=== PATIENT | female | born 1945 | race Caucasian/White ===

== ENCOUNTER 2018-02-08 06:37 | Observation (INO) | payer MEDICARE, OTHER ==
[~2018-02-08] VITALS: Ht 162.6 cm; Wt 58.1 kg
--- OUTSIDE RECORDS SUMMARY | 2018-02-08 06:39 | XMS REPORT | Clinical Summary ---
Author Author [facility] Address Unknown Phone Unavailable Care Team Providers Care Traveling Accountant Name Role Phone Mira Brennan MD PCP Allergies Active Allergy Reactions Severity Noted Date Comments Codeine Itching 12/12/2013 Current Medications Prescription Sig. Disp. Refills Start End Date Status Date cholecalciferol, vitamin Take 1,000 Units by Active D3, (VITAMIN D3) 1,000 mouth. unit tablet sertraline (ZOLOFT) 100 50 mg a day 1 03/22/20 Active MG tablet 17 alendronate (FOSAMAX) 70 Take 1 tablet (70 mg 12 tablet 3 04/12/20 04/12/20 Active MG tablet total) by mouth every 7 17 18 days. Take in the morning with a full glass of water, as directed. PROAIR HFA 90 INHALE 2 PUFFS PO Q 4 H 0 12/15/19 04/12/20 Discontin mcg/actuation inhaler UTD 17 17 ued azithromycin (ZITHROMAX) 0 12/15/19 04/12/20 Discontin 250 MG tablet 17 17 ued BREO ELLIPTA 200-25 INHALE 1 PUFF PO D UTD 5 12/29/19 04/12/20 Discontin mcg/dose blister with 17 17 ued device powder for inhalation alendronate (FOSAMAX) 70 Take 1 tablet (70 mg 12 tablet 3 01/12/20 04/12/20 Discontin MG tablet total) by mouth every 7 17 17 ued days. Take in the morning with a full glass of water, as directed. Active Problems Not on file Encounters Date Type Specialty Care Team Description 04/12/2017 Office Visit Endocrinology Alberto Faust MD Osteoporosis (Primary Dx) 04/12/2017 Orders Only Endocrinology Louann Cano MA Osteoporosis (Primary Dx) after 02/07/2017 Social History Tobacco Use Types Packs/Day Years Used Date Never Smoker Smokeless Tobacco: Never Used Alcohol Use Drinks/Week oz/Week Comments No Sex Assigned at Date Recorded Not on file Last Filed Vital Signs Vital Sign Reading Time Taken Blood Pressure 121/63 04/12/2017 11:47 AM CDT Pulse 76 04/12/2017 11:47 AM CDT Temperature - - Respiratory Rate - - Oxygen Saturation - - Inhaled Oxygen - - Concentration Weight 60.6 kg (133 lb 9.6 oz) 04/12/2017 11:47 AM CDT Height 161.3 cm (5' 3.5") 04/12/2017 11:47 AM CDT Body Mass Index 23.29 04/12/2017 11:47 AM CDT Plan of Treatment Date Type Specialty Care Team Description 04/17/2018 Ancillary Alberto Faust MD Procedure [address] [place] [address] [phone] 04/17/2018 Office Visit Endocrinology Alberto Faust MD [address] [address] [phone] Health Maintenance Due Date Last Done Comments COLONOSCOPY 1997 MAMMOGRAM 1997 ZOSTER VACCINE 2007 PNEUMOCOCCAL 2012 POLYSACCHARIDE VACCINE AGE 65 AND OVER PNEUMOCOCCAL-13 2012 INFLUENZA VACCINE 05/24/2018 Results * Bone Density (04/12/2017 11:42 AM) Specimen Performing Laboratory [facility] [address] [place] [address] Narrative [facility] [address] [place] [address]. [address] [place] [id number] Bone Density Report Name: GLORIA SAHU Sex: Female Age: 72 Ethnicity: White Height: 63.5 in Referring Provider: ALBERTO FAUST Date of : 1945 Weight: 133.6lb Indication: Postmenopausal; screening for osteoporosis Accession number: [id number] Bone Density: Exam date 04/12/2017 Region BMD (g/cm2) T-score Z-score Classification AP Spine(L1-L4) 1.0590.12.2 Normal Femoral Neck(Left) 0.579 -2.4 -0.6 Osteopenia Total Hip(Left) 0.735 -1.7 -0.2 Osteopenia Femoral Neck(Right) 0.665 -1.70.1 Osteopenia Total Hip(Right) 0.700 -2.0 -0.5 Osteopenia Total Hip Mean 0.718 -1.9 -0.4 Osteopenia World Health Organization criteria for BMD impression classify patients as Normal (T-score at or above 1.0), Osteopenia (T-score between 1.0 and 2.5), or Osteoporosis (T-score at or below 2.5). 10-year Fracture Risk: Major Osteoporotic Fracture 13% Hip Fracture 3.1% Reported Risk Factors: [place] (), T-score(WHO)=-2.3, BMI=23.3 FRAX Version 3.08. Fracture probability calculated for an untreated patient. Fracture probability may be lower if the patient has received treatment. Impression: The patient has low bone mass, based on the Left Femoral Neck T-score. The patient has an estimated ten-year risk of hip fracture of 3.1% and an estimated ten-year risk of major fracture of 13%, based on the WHO FRAX algorithm for a patient not on therapy (NOF thresholds are 20% for a major fracture and 3% for a hip fracture). Discussion: BONE DENSITY IS LOW AT ONE OR MORE SKELETAL SITES. THE PATIENT'S BMD AND CLINICAL RISK FACTORS CONTRIBUTE TO THIS PATIENT'S INCREASED RISK OF FRACTURE. This patient's lowest T-score is low at one or more skeletal sites.It meets the World Health Organization's (WHO) criteria for low bone mass (T-score between -1.0 and -2.5). The patient's 10-year risk of hip fracture as calculated by FRAX exceeds the threshold where pharmacological therapy is recommended by the National Osteoporosis Foundation (NOF).However, all treatment decisions require clinical judgment and consideration of individual patient factors, including patient preferences, comorbidities, previous drug use, risk factors not captured in the FRAX model (e.g., frailty, falls, vitamin D deficiency, increased bone turnover, interval significant decline in bone density) and possible under or overestimation of fracture risk by FRAX. The patient should follow a healthful lifestyle (good nutrition with adequate calcium and vitamin D, and appropriate weight-bearing exercise). Follow-Up: Consider a repeat BMD and Vertebral Fracture Assessment (VFA) exam in 1-2 years or sooner if medically necessary, to reassess this patient's status. Reported by: Alberto Faust MD, NEGRA, MACE, FACP, CCD on 04/12/2017 4:41:00 PM. after 02/07/2017 Insurance Payer Benefit Subscriber ID Type Phone Address Plan / Group MEDICARE MEDICARE xxxxxxxxxx Medicare [place], [place] PART A AND B AETNA AETNA PPO xxxxxxxxxx PPO OPEN CHOICE
--- OUTSIDE RECORDS SUMMARY | 2018-02-08 06:39 | XMS REPORT | Clinical Summary ---
Author Author [facility] Address Unknown Phone Unavailable Care Team Providers Care Dice Spotter Name Role Phone PCP Unavailable Allergies Active Allergy Reactions Severity Noted Date Comments Codeine Itching 12/12/2013 Current Medications Prescription Sig. Disp. Refills Start End Date Status Date esomeprazole (NEXIUM) 40 Take 40 mg by mouth Active MG capsule daily. rosuvastatin (CRESTOR) 20 Take 20 mg by mouth Active MG tablet daily. clidinium-chlordiazepoxid Take 1 capsule by mouth 4 Active e (LIBRAX) 5-2.5 mg per (four) times daily before capsule meals and nightly. OMEPRAZOLE/SODIUM Take by mouth. Active BICARBONATE (ZEGERID ORAL) cholecalciferol, vitamin Take 1,000 Units by mouth Active D3, 1,000 units tablet daily. Active Problems No known active problems Social History Tobacco Use Types Packs/Day Years Used Date Never Smoker Alcohol Use Drinks/Week oz/Week Comments Yes 1 Glasses of 0.6 wine Sex Assigned at Date Recorded Not on file Last Filed Vital Signs Not on file Plan of Treatment Not on file Results Not on fileafter 02/07/2017
[2018-02-08] MEDS ORDERED: ONDANSETRON HCL INJ 2 MG/ML VIAL IV STA ×2 (06:55→08:44)
[2018-02-08] MEDS ORDERED: KETOROLAC TROMETHAMINE 30 MG/ML VIAL IV STA ×2 (06:55→14:19)
[2018-02-08] MEDS ORDERED: ONDANSETRON HCL INJ 2 MG/ML VIAL ONE (06:57)
[2018-02-08] MEDS ORDERED: KETOROLAC TROMETHAMINE 30 MG/ML VIAL ONE (06:57)
[2018-02-08 07:43] LABS: BASOPHILS % 0.4 % (0.0-1.0); EOSINOPHILS # (AUTO) 0.1 (0.0-0.4); EOSINOPHILS % 1.2 % (0.0-6.0); HEMATOCRIT 42.2 % (34.2-44.1); LYMPHOCYTES # (AUTO) 1.7 (1.0-3.2); LYMPHOCYTES % 34.6 % (18.0-39.1); MEAN CORPUSCULAR HEMOGLOBIN 31.6 pg (28-32); MEAN CORPUSCULAR HGB CONC 33.2 g/dL (31-35); MEAN CORPUSCULAR VOLUME 95.3 fL (81-99); MONOCYTES # (AUTO) 0.4 (0.2-0.8); MONOCYTES % 8.8 % (4.4-11.3); NEUTROPHILS # (AUTO) 2.7 (2.1-6.9); NEUTROPHILS % 54.4 % (38.7-80.0); PLATELET COUNT 221 x10e3/uL (140-360); RED BLOOD COUNT 4.43 x10e6/uL (3.6-5.1); RED CELL DISTRIBUTION WIDTH 12.6 % (11.7-14.4)
[2018-02-08 07:58] LABS: ALANINE AMINOTRANSFERASE 16 IU/L (0-55); ALBUMIN/GLOBULIN RATIO 1.3 (0.8-2.0); ALKALINE PHOSPHATASE 59 IU/L (40-150); AMYLASE 51 U/L (25-125); ANION GAP 15.3 mmol/L (8-16); BLOOD UREA NITROGEN 23 mg/dL (7-26); BUN/CREATININE RATIO 33 (6-25); CALCIUM 9.8 mg/dL (8.4-10.2); CARBON DIOXIDE 25 mmol/L (22-29); CHLORIDE 103 mmol/L (98-107); EST GLOMERULAR FILTRATION RATE > 60 ML/MIN (60-); GLUCOSE 128 mg/dL (74-118); LIPASE 33 U/L (8-78); POTASSIUM 4.3 mmol/L (3.5-5.1); SODIUM 139 mmol/L (136-145)
[2018-02-08] MEDS ORDERED: MORPHINE SULFATE 2 MG/ML SYR IV STA (08:12)
--- NOTE | 2018-02-08 08:12 | Diagnostic Imaging Report ---
PROCEDURE: CT ABDOMEN AND PELVIS WITHOUT CONTRAST TECHNIQUE: The abdomen and pelvis were scanned utilizing a multidetector helical scanner from the diaphragm to the lesser trochanter. No intravenous or oral contrast was administered per physician request. Coronal and sagittal multiplanar reformations were obtained. COMPARISON: None. INDICATIONS: RIGHT FLANK PAIN FINDINGS: ABSENCE OF INTRAVENOUS CONTRAST DECREASES SENSITIVITY FOR DETECTION OF FOCAL LESIONS AND VASCULAR PATHOLOGY. LOWER THORAX: Normal. HEPATOBILIARY: No focal hepatic lesions. No biliary ductal dilatation. SPLEEN: No splenomegaly. PANCREAS: No focal masses or ductal dilatation. ADRENALS: No adrenal nodules. KIDNEYS/URETERS: 2.0 mm calculus is present in the distal right ureter, located within the right ureterovesicular junction, series 3 image 149. No right hydroureter or hydronephrosis. Punctate calculi are present in the interpolar region and inferior pole of the left kidney. No left hydronephrosis. No perinephric soft tissue inflammatory changes. PELVIC ORGANS/BLADDER: Unremarkable. PERITONEUM / RETROPERITONEUM: No free air or fluid. LYMPH NODES: No lymphadenopathy. VESSELS: Atherosclerotic calcifications. GI TRACT: No distention or wall thickening. Normal appendix. Moderate amount of retained feces in its intraluminal evaluation of the colon. BONES AND SOFT TISSUES: Degenerative changes of the thoracic spine. IMPRESSION: Distal right ureteral calculus. No right hydronephrosis or hydroureter. Nonobstructing left nephrolithiasis. Dictated by: Willy Maynard M.D. on 02/08/2018 at 8:13 Electronically approved by: Willy Maynard M.D. on 02/08/2018 at 8:13
[2018-02-08 08:42] LABS: BILIRUBIN,URINE NEGATIVE (NEGATIVE); CLARITY,URINE SL CLOUDY (CLEAR); COLOR,URINE YELLOW (YELLOW); KETONES,URINE TRACE (NEGATIVE); LEUKOCYTE ESTERASE ,URINE TRACE (NEGATIVE); NITRITE,URINE NEGATIVE (NEGATIVE); PROTEIN,URINE DIPSTICK NEGATIVE (NEGATIVE); URINE UROBILINOGEN 0.2 mg/dL (0.2 - 1)
[2018-02-08 08:48] LABS: BACTERIA,URINE FEW /HPF; CALCIUM OXALATE CRYSTALS,UR MODERATE (FEW); EPITHELIAL CELLS,URINE MODERATE /LPF
[2018-02-08] MEDS ORDERED: HYDROMORPHONE 1MG/1ML INJ IV STA ×2 (09:03→10:57)
[2018-02-08] MEDS ORDERED: SODIUM CHLORIDE 0.9% 1000ML 1,000 ML IV SCH (11:00)
[2018-02-08] MEDS ORDERED: HYDROMORPHONE 1MG/1ML INJ IV SCH (11:15)
[2018-02-08] MEDS ORDERED: PROMETHAZINE 12.5MG/ NACL 0.9% 12.5 MG/50 ML BAG IV ONE (12:15)
[2018-02-08] MEDS ORDERED: ONDANSETRON HCL INJ 2 MG/ML VIAL IV PRN (15:30)
[2018-02-08] MEDS ORDERED: HYDROMORPHONE 1MG/1ML INJ IV PRN (15:30)
[2018-02-08] MEDS ORDERED: CEFTRIAXONE SOD 1 GM VIAL IV SCH (15:45)
[2018-02-08] MEDS: SODIUM CHLORIDE 0.9% 1000ML 1,000 ML IV SCH ×2 (16:00→23:26)
--- OUTSIDE RECORDS SUMMARY | 2018-02-08 16:18 | XMS REPORT ---
[facility] Address Unknown Phone Unavailable Care Team Providers Care Detention Attendant Name Role Phone ALEX WANG Unavailable Unavailable Problems This patient has no known problems. Allergies, Adverse Reactions, Alerts This patient has no known allergies or adverse reactions. Medications This patient has no known medications. Results Test Description Test Time Test Comments Text Results Atomic Results Result Comments CT ABDOMEN/PELVIS WO [place] [address] Patient Name: PETE SAHU MR #: [id number] : 1945 Age/Sex: 72/F Req #: [id number] Adm Physician: Ordered by: ROBIN MA MD Report #: [id number] Location: ER Room/Bed: ___ Procedure: [id number] CT/CT ABDOMEN/PELVIS WO Exam Date: 02/08/18 Exam Time: 0720 REPORT STATUS: Signed PROCEDURE: CT ABDOMEN AND PELVIS WITHOUT CONTRAST TECHNIQUE: The abdomen and pelvis were scanned utilizing a multidetector helical scanner from the diaphragm to the lesser trochanter. No intravenous or oral contrast was administered per physician request. Coronal and sagittal multiplanar reformations were obtained. COMPARISON: None. INDICATIONS: RIGHT FLANK PAIN FINDINGS: ABSENCE OF INTRAVENOUS CONTRAST DECREASES SENSITIVITY FOR DETECTION OF FOCAL LESIONS AND VASCULAR PATHOLOGY. LOWER THORAX: Normal. HEPATOBILIARY: No focal hepatic lesions. No biliary ductal dilatation. SPLEEN: No splenomegaly. PANCREAS: No focal masses or ductal dilatation. ADRENALS: No adrenal nodules. KIDNEYS/ URETERS: 2.0 mm calculus is present in the distal right ureter, located within the right ureterovesicular junction, series 3 image 149. No right hydroureter or hydronephrosis. Punctate calculi are present in the interpolar region and inferior pole of the left kidney. No left hydronephrosis. No perinephric soft tissue inflammatory changes. PELVIC ORGANS /BLADDER: Unremarkable. PERITONEUM / RETROPERITONEUM: No free air or fluid. LYMPH NODES: No lymphadenopathy. VESSELS: Atherosclerotic calcifications. GI TRACT: No distention or wall thickening. Normal appendix. Moderate amount of retained feces in its intraluminal evaluation of the colon. BONES AND SOFT TISSUES: Degenerative changes of the thoracic spine. IMPRESSION: Distal right ureteral calculus. No right hydronephrosis or hydroureter. Nonobstructing left nephrolithiasis. Dictated by: Shoshana Callejas M.D. on 02/08/2018 at 8:13 Electronically approved by: Shoshana Callejas M.D. on 02/08/2018 at 8:13 Dictated By: SHOSHANA CALLEJAS MD 2 Transcribed By: VONNIE on 02/08/18812 COPY TO: ROBIN MA MD
--- OUTSIDE RECORDS SUMMARY | 2018-02-08 16:18 | XMS REPORT | Clinical Summary ---
Author Author [facility] Address Unknown Phone Unavailable Care Team Providers Care Bulking Machine Operator Name Role Phone PCP Unavailable Allergies Active [...]
--- OUTSIDE RECORDS SUMMARY | 2018-02-08 16:18 | XMS REPORT | Clinical Summary ---
Author Author [facility] Address Unknown Phone Unavailable Care Team Providers Care Link Cutter Name Role Phone Mira Brennan MD PCP [...] Description 04/17/2018 Ancillary Alberto Faust MD Procedure [address] [place] [address] [phone] 04/17/2018 Office Visit Endocrinology Alberto Faust MD [address] [address] [phone] Health Maintenance Due Date Last Done Comments COLONOSCOPY 1997 MAMMOGRAM 1997 ZOSTER VACCINE 2007 PNEUMOCOCCAL 2012 POLYSACCHARIDE VACCINE AGE 65 AND OVER PNEUMOCOCCAL-13 2012 INFLUENZA VACCINE 05/24/2018 Results * Bone Density (04/12/2017 11:42 AM) Specimen Performing Laboratory [facility] [address] [place] [address] Narrative [facility] [address] [place] [address]. [address] [place] [address] Bone Density Report Name: GLORIA SAHU Sex: Female Age: 72 Ethnicity: White Height: 63.5 in Referring Provider: ALBERTO FAUST Date of : 1945 Weight: 133.6lb Indication: Postmenopausal; screening for osteoporosis Accession number: [id number] Bone Density: Exam date 04/12/2017 Region BMD [...]
[2018-02-08 17:22] VITALS: BP 119/59
[2018-02-08 17:44] VITALS: BP 119/59
[2018-02-08 20:00] VITALS: BP 109/55
[2018-02-09] VITALS: BP 110/57
[2018-02-09 04:00] VITALS: BP 122/57
[2018-02-09 07:08] LABS: BASOPHILS % 0.8 % (0.0-1.0); EOSINOPHILS # (AUTO) 0.1 (0.0-0.4); EOSINOPHILS % 1.3 % (0.0-6.0); HEMATOCRIT 34.8 % (34.2-44.1); HEMOGLOBIN 11.3 g/dL (12.0-16.0); LYMPHOCYTES # (AUTO) 1.2 (1.0-3.2); LYMPHOCYTES % 31.5 % (18.0-39.1); MEAN CORPUSCULAR HEMOGLOBIN 31.7 pg (28-32); MEAN CORPUSCULAR HGB CONC 32.5 g/dL (31-35); MEAN CORPUSCULAR VOLUME 97.8 fL (81-99); MONOCYTES # (AUTO) 0.3 (0.2-0.8); MONOCYTES % 9.1 % (4.4-11.3); NEUTROPHILS # (AUTO) 2.1 (2.1-6.9); PLATELET COUNT 168 x10e3/uL (140-360); RED BLOOD COUNT 3.56 x10e6/uL (3.6-5.1); RED CELL DISTRIBUTION WIDTH 12.7 % (11.7-14.4)
[2018-02-09 07:31] LABS: ANION GAP 7.7 mmol/L (8-16); BLOOD UREA NITROGEN 13 mg/dL (7-26); BUN/CREATININE RATIO 24 (6-25); CALCIUM 8.3 mg/dL (8.4-10.2); CARBON DIOXIDE 26 mmol/L (22-29); CHLORIDE 112 mmol/L (98-107); CREATININE, SERUM 0.55 mg/dL (0.57-1.11); EST GLOMERULAR FILTRATION RATE > 60 ML/MIN (60-); GLUCOSE 91 mg/dL (74-118); POTASSIUM 3.7 mmol/L (3.5-5.1); SODIUM 142 mmol/L (136-145)
[2018-02-09 09:30] VITALS: BP 129/60
[2018-02-09 10:04] VITALS: BP 129/60
--- NOTE | 2018-02-09 10:31 | Consultation ---
DATE OF CONSULTATION: February 09, 2018 UROLOGY CONSULTATION CHIEF UROLOGIC COMPLAINT/REASON FOR CONSULTATION: Kidney stone. HISTORY OF PRESENT ILLNESS: Gloria Keating is a 72-year-old female with acute onset of sharp severe right-sided flank pain. She was admitted to the hospital with a kidney stone and gross hematuria. PAST MEDICAL HISTORY: Partial colectomy and hypertension. MEDICATIONS: Please see MAR. ALLERGIES: NKDA. SOCIAL HISTORY: No smoking. No drinking. FAMILY HISTORY: No urologic stones or disease. REVIEW OF SYSTEMS: As per HPI. All other systems negative. PHYSICAL EXAMINATION GENERAL: Elderly female in no acute distress. VITALS: Currently, she is afebrile with stable vital signs. HEENT: Sclerae anicteric. NECK: Supple. BACK: Without costovertebral tenderness bilaterally. ABDOMEN: Soft. It is nontender. It is nondistended. No palpable masses. No palpable hernias. No palpable hepatosplenomegaly. : Normal female external genitalia. EXTREMITIES: Without edema. Moves extremities. PSYCH: Alert and appropriate. SKIN: Intact. Normal color. PERTINENT LABORATORY DATA: CT scan revealing a 10 mm right distal ureteral calculus, mild hydronephrosis and punctate left kidney stone. Hemoglobin 14, hematocrit 42 and platelet count 221,000, white cell count 5000. Sodium 139, potassium 4.3, chloride 109, bicarb 25, BUN 22, creatinine 0.7, glucose 128. Urinalysis with 6-10 reds and 6-10 whites. IMPRESSION 1. Right ureteral calculus. 2. Mild right hydronephrosis. 3. Right renal colic. 4. Left kidney stone, nonobstructing. 5. Gross hematuria. 6. Questionable urinary tract infection. PLAN: The patient passed the ureteral stone. She is currently asymptomatic. Will discharge her home with outpatient followup and stone workup. Thank you for allowing me to participate in the care of your patient. Will be happy to follow along with you. Job#: [id number] RI cc:KARAN CRISTINA MD
== END 2018-02-09 10:20 | disposition home or self-care (01) ==
LOC: ER 06:37 → MED/SURG 16:15
PROVIDERS: ADMIT Internal Medicine; ATTEND Internal Medicine
DX: N13.6 Pyonephrosis (principal); I10 Essential (primary) hypertension; N39.0 Urinary tract infection, site not specified; R31.0 Gross hematuria
CPT/HCPCS: 36415 ×2; 74176; 80048; 80053; 81001; 82150; 83690; 85025 ×2; 87086; 88300; 99284; G0378 ×2; J0696; J1170; J1885; J2270; J2405; J2550; J7030 ×2

== ENCOUNTER → 2018-03-07 | Outpatient (CLI) | payer MEDICARE ==
[~2018-03-07] MED LIST: IOPAMIDOL 300MG/ML 100 ML INFUS..BTL IV ONE
[2018-03-07 11:10] LABS: BLOOD UREA NITROGEN 18 mg/dL (7-26); BUN/CREATININE RATIO 31 (6-25); CREATININE, SERUM 0.58 mg/dL (0.57-1.11); EST GLOMERULAR FILTRATION RATE > 60 ML/MIN (60-)
--- NOTE | 2018-03-07 16:51 | Diagnostic Imaging Report ---
PROCEDURE:INTRAVENOUS PYELOGRAM (IVP) COMPARISON:Patients [facility], CT, CT ABDOMEN/PELVIS WO, 02/08/2018, 7:23. INDICATIONS:CALCULI OF KIDNEY TECHNIQUE: After obtaining a drain layer KUB, 100 cc of Isovue-300 were administered intravenously. Multiple frontal and bilateral oblique images of the abdomen and pelvis were obtained with and without compression. Post-void images were obtained. FINDING: Stuffing Machine Operator KUB: 2 and 3 mm nonobstructing calculi in the inferior pole of the left kidney. No other radiopaque densities project over the genitourinary system. Kidneys: Renal positions, contours and sizes are normal. Prompt bilateral excretion of contrast. Calices and renal pelves are normal without dilation or filling defects. Ureters: Normal caliber bilaterally without irregularity or filling defect. Bladder: Increased trabeculations of the bladder. Small post-void residual. CONCLUSION: 1. 2 and 3 mm nonobstructing calculi in the inferior pole of the left kidney. 2. No filling defects in the collecting systems, pelves, ureters, or bladder. 3. Increased bladder trabeculation. Small postvoid residual. Aníbal Maguire M.D. Dictated by: Aníbal Maguire M.D. on 03/07/2018 at 16:53 Electronically approved by: Aníbal Maguire M.D. on 03/07/2018 at 16:53
== END ==
LOC: DX 10:08
PROVIDERS: ATTEND Urology
DX: N20.0 Calculus of kidney (principal); N13.30 Unspecified hydronephrosis
CPT/HCPCS: 36415; 74400; 82565; 84520; Q9967

== ENCOUNTER → 2018-06-19 | Outpatient (CLI) | payer MEDICARE ==
--- NOTE | 2018-06-19 11:36 | Diagnostic Imaging Report ---
PROCEDURE:X-RAY ABDOMEN - KUB COMPARISON:IVP dated 03/07/18 INDICATIONS:CALCULUS OF KIDNEY FINDINGS: There is a non-obstructed bowel-gas pattern. 0.4 and 0.3 cm calculi overlying left renal inferior pole. Unchanged pelvic phleboliths. There are no acute osseous abnormalities. CONCLUSION: Subcentimeter nonobstructive left inferior pole renal calculi. Dictated by: Paul Ramon M.D. on 06/19/2018 at 11:42 Electronically approved by: Paul Ramon M.D. on 06/19/2018 at 11:42
== END ==
LOC: RAD 10:02
PROVIDERS: ATTEND Urology
DX: N20.0 Calculus of kidney (principal)
CPT/HCPCS: 74018

== ENCOUNTER → 2018-09-18 | Outpatient (CLI) | payer MEDICARE ==
--- NOTE | 2018-09-18 12:11 | Diagnostic Imaging Report ---
EXAM: ABDOMEN-1VIEW (KUB) DATE: 09/18/2018 11:34 AM INDICATION: History of kidney stones COMPARISON: None FINDINGS: Bowel Gas Pattern: Non-obstructive. Moderate stool. Stool largely secures kidneys. Pneumoperitoneum: None. Suspicious Calcifications: Calcifications in the pelvis statistically vascular. Apparent calcifications right upper quadrant appear superior to kidney and likely represent hepatic granulomata. Additional presumed splenic granulomata. Other: Degenerative changes hips. IMPRESSION: No acute findings. Signed by: Dr. Moises Matson MD on 09/18/2018 12:08 PM
== END ==
LOC: RAD 11:23
PROVIDERS: ATTEND Urology
DX: N20.0 Calculus of kidney (principal)
CPT/HCPCS: 74018

== ENCOUNTER → 2019-01-12 | Outpatient (CLI) | payer OTHER ==
--- NOTE | 2019-01-12 15:03 | Diagnostic Imaging Report ---
Exam: KUB. Clinical History: Calculus of kidney Comparison: 09/18/2018 FINDINGS: Bowel Gas Pattern: Non-obstructive. Moderate stool. Stool largely obscures kidneys. Pneumoperitoneum: None. Suspicious Calcifications: Calcifications in the pelvis statistically vascular. Apparent calcifications right upper quadrant appear superior to kidney and likely represent hepatic granulomata. Additional presumed splenic granulomata. Several punctate stones over the left kidney. Other: Degenerative changes hips. IMPRESSION: Several punctate stones over the left kidney. Signed by: Dr. Bernardo Tripp M.D. on 01/12/2019 2:59 PM
== END ==
LOC: RAD 13:42
PROVIDERS: ATTEND Urology
DX: N20.0 Calculus of kidney (principal)
CPT/HCPCS: 74018

== ENCOUNTER → 2019-07-11 | Outpatient (CLI) | payer MEDICARE ==
--- NOTE | 2019-07-11 13:19 | Diagnostic Imaging Report ---
EXAM: ABDOMEN-1VIEW (KUB) DATE: 07/11/2019 12:51 PM INDICATION: Renal stones COMPARISON: 01/12/2019 FINDINGS: Again identified are 2 punctate calcifications projecting over the left renal shadow which may reflect small stones. There are additional calcifications projecting over the liver and spleen which likely reflect granulomatous calcifications. Phleboliths are noted within the pelvis. Bowel gas pattern appears nonobstructive. No intraperitoneal free air is appreciated. There has been interval right hip arthroplasty since the prior examination. No acute osseous abnormalities identified. IMPRESSION: Subcentimeter calcifications noted projecting over the left renal shadow which may reflect small stones, similar to the prior examination. Signed by: Dr. Hola Quiros MD on 07/11/2019 1:15 PM
== END ==
LOC: RAD 12:42
PROVIDERS: ATTEND Urology
DX: N20.0 Calculus of kidney (principal)
CPT/HCPCS: 74018

== ENCOUNTER → 2021-08-18 | Outpatient (CLI) | payer MEDICARE ==
[2021-08-18 14:16] LABS: BASOPHILS % 0.7 % (0.0-1.0); EOSINOPHILS % 0.7 % (0.0-6.0); HEMATOCRIT 38.6 % (34.2-44.1); HEMOGLOBIN 12.3 g/dL (12.0-16.0); LYMPHOCYTES # (AUTO) 1.2 (1.0-3.2); LYMPHOCYTES % 22.2 % (18.0-39.1); MEAN CORPUSCULAR HEMOGLOBIN 31.3 pg (28-32); MEAN CORPUSCULAR HGB CONC 31.9 g/dL (31-35); MEAN CORPUSCULAR VOLUME 98.2 fL (81-99); MONOCYTES # (AUTO) 0.4 (0.2-0.8); NEUTROPHILS # (AUTO) 3.7 (2.1-6.9); NEUTROPHILS % 68.2 % (38.7-80.0); PLATELET COUNT 269 x10e3/uL (140-360); RED BLOOD COUNT 3.93 x10e6/uL (3.6-5.1); RED CELL DISTRIBUTION WIDTH 13.2 % (11.7-14.4)
[2021-08-18 14:33] LABS: CALCIUM 9.1 mg/dL (8.4-10.2); CREATININE, SERUM 0.65 mg/dL (0.57-1.11)
[2021-08-18 14:55] LABS: THYROID STIMULATING HORMONE 0.591 uIU/mL (0.350-4.940)
== END ==
LOC: LAB 13:51
PROVIDERS: ATTEND Otolaryngology
DX: R53.83 Other fatigue (principal)
CPT/HCPCS: 36415; 80048; 84443; 85025; 86039; 86140; 86376; 86431

== ENCOUNTER → 2021-08-26 | Outpatient (CLI) | payer MEDICARE | LOC: CT 09:21 | PROVIDERS: ATTEND Otolaryngology | DX: R51.9 Headache, unspecified (principal) | CPT/HCPCS: 70450; 76536 ==

== ENCOUNTER → 2021-10-07 | Outpatient (CLI) | payer MEDICARE | LOC: DX 10:11 | PROVIDERS: ATTEND Internal Medicine | DX: R13.10 Dysphagia, unspecified (principal); Z20.822 Contact with and (suspected) exposure to COVID-19 | CPT/HCPCS: 74246; U0002 ==

== ENCOUNTER → 2021-10-21 | Outpatient (CLI) | payer MEDICARE ==
[~2021-10-21] MED LIST changes: +DIATRIZOATE MEGL/DIATRIZOA SOD 30 ML BTL PO ONE; -IOPAMIDOL 300MG/ML 100 ML INFUS..BTL IV ONE; +IOPAMIDOL 370 MG/ML 200 ML INFUS..BTL INJ ONE; +SODIUM CHLORIDE 0.9% 50ML 50 ML ONE
[2021-10-21 16:55] LABS: CREATININE, SERUM 0.74 mg/dL (0.57-1.11)
== END ==
LOC: CT 15:35
PROVIDERS: ATTEND Internal Medicine
DX: R13.10 Dysphagia, unspecified (principal)
CPT/HCPCS: 36415; 70491; 71260; 82565; 84520; Q9967

== ENCOUNTER → 2022-12-22 | Outpatient (CLI) | payer MEDICARE ==
[~2022-12-22] MED LIST changes: -DIATRIZOATE MEGL/DIATRIZOA SOD 30 ML BTL PO ONE; +IOPAMIDOL 370 MG/ML 100 ML INFUS..BTL INJ ONE; -IOPAMIDOL 370 MG/ML 200 ML INFUS..BTL INJ ONE; -SODIUM CHLORIDE 0.9% 50ML 50 ML ONE
[2022-12-22 15:16] LABS: CREATININE, SERUM 0.65 mg/dL (0.57-1.11)
== END ==
LOC: CT 14:31
PROVIDERS: ATTEND Nurse Practitioner Adult Health
DX: R10.0 Acute abdomen (principal)
CPT/HCPCS: 36415; 74177; 82565; 84520; Q9967